=== PATIENT | male | born 1970 | race Native Hawaiian/Other Pacific Islander ===

== ENCOUNTER 2023-02-22 10:40 | Emergency (ER) | payer BC ==
[~2023-02-22] VITALS: Ht 188 cm; Wt 112.9 kg
[2023-02-22 10:54] VITALS: TEMP 98.1
[2023-02-22 12:30] LABS: PLATELET COUNT 213 K/uL (142-355)
[2023-02-22 12:40] LABS: POTASSIUM 4.1 mmol/L (3.6-5.2)
[2023-02-22 13:54] VITALS: BP 144/92
== END 2023-02-22 13:54 | disposition home or self-care (01) ==
LOC: ED 10:40
PROVIDERS: Family Medicine
DX: R10.11 Right upper quadrant pain (principal); K66.0 Peritoneal adhesions (postprocedural) (postinfection); K59.00 Constipation, unspecified; I10 Essential (primary) hypertension; R55 Syncope and collapse
CPT/HCPCS: 80053; 81002; 82550; 83690; 85027; 99283